=== PATIENT | male | born 1945 | race Caucasian/White ===

== ENCOUNTER 2021-02-06 09:55 | Outpatient (CLI) | payer MEDICARE, SELFPAY ==
--- NOTE | 2021-02-06 10:36 | EST_ITS ---
Patient Info Name: Jesus Rashid Age: 75 years : 1945 Gender: Male Ht: 63 in Wt: 190 lbs BSA: 1.99 m2 HR: 68 bpm BP: 112 / 60 mmHg Heart Rhythm: Sinus Rhythm Exam Date: 02/06/2021 10:45 AM Exam Location: [facility] Stress Patient Status: Outpatient Admit Date: 02/06/2021 Staff Ordering Physician: Otf Erazo PA-C Attending Provider: Otf Erazo PA-C Exercise Technologist: Lara Terry CT Exercise Physician: Luis Antonio Sierra DO Exam Type: CA stress test treadmill Study Info An exercise stress test was performed. Summary 1. 1. Negative Lino exercise stress test for ischemic ST changes by ECG criteria. 2. 2. Mildly reduced functional capacity, achieving 7 METs of workload. 3. 3. Appropriate HR response to exercise. 4. 4. Appropriate HR recovery at 1 minute post exercise. 5. 5. No imaging with stress testing. 6. 6. Patient informed of the above results. Protocol: [facility]ino Stress ECG Details Stage: REST Duration (min): 1 min : 9 sec Speed (mph): 0.0 Grade (%): 0 HR (bpm): 68 SBP (mmHg): 112 DBP (mmHg): 62 METS: --- Stage: REST Duration (min): 5 min : 54 sec Speed (mph): 0.0 Grade (%): 0 HR (bpm): 66 SBP (mmHg): 112 DBP (mmHg): 62 METS: --- Stage: STAGE 1 Duration (min): 1 min : 0 sec Speed (mph): 1.7 Grade (%): 10 HR (bpm): 92 SBP (mmHg): 112 DBP (mmHg): 62 METS: --- Stage: STAGE 1 Duration (min): 2 min : 0 sec Speed (mph): 1.7 Grade (%): 10 HR (bpm): 99 SBP (mmHg): 112 DBP (mmHg): 62 METS: --- Stage: STAGE 1 Duration (min): 3 min : 0 sec Speed (mph): 1.7 Grade (%): 10 HR (bpm): 105 SBP (mmHg): 134 DBP (mmHg): 72 METS: --- Stage: STAGE 2 Duration (min): 1 min : 0 sec Speed (mph): 2.5 Grade (%): 12 HR (bpm): 111 SBP (mmHg): 134 DBP (mmHg): 72 METS: --- Stage: STAGE 2 Duration (min): 2 min : 0 sec Speed (mph): 2.5 Grade (%): 12 HR (bpm): 116 SBP (mmHg): 178 DBP (mmHg): 67 METS: --- Stage: STAGE 2 Duration (min): 2 min : 42 sec Speed (mph): 2.5 Grade (%): 12 HR (bpm): 123 SBP (mmHg): 178 DBP (mmHg): 67 METS: --- Stage: RECOVERY Duration (min): 0 min : 17 sec Speed (mph): 0.0 Grade (%): 0 HR (bpm): 125 SBP (mmHg): 178 DBP (mmHg): 67 METS: --- Stage: RECOVERY Duration (min): 1 min : 17 sec Speed (mph): 0.0 Grade (%): 0 HR (bpm): 105 SBP (mmHg): 178 DBP (mmHg): 67 METS: --- Stage: RECOVERY Duration (min): 2 min : 4 sec Speed (mph): 0.0 Grade (%): 0 HR (bpm): 98 SBP (mmHg): 148 DBP (mmHg): 58 METS: --- Rest HR: 66 bpm Peak HR: 125 bpm Rest Sys BP: 112 mmHg Peak Sys BP: 178 mmHg Max Pred HR: 145 bpm % Max Pred HR: 86 % Target HR: 123 bpm Max RPP: 22,250 bpm*mmHg Sharma Score: -1 Termination Reason: Reached target heart rate or workload C
== END 2021-02-06 09:56 | disposition home or self-care (01) ==
PROVIDERS: PCP Family Medicine; Visit Provider Physician Assistant
DX: R06.02 Shortness of breath (principal)
CPT/HCPCS: 93017